=== PATIENT | female | born 1965 | race Two or more races ===

== ENCOUNTER 2020-05-07 07:23 | Outpatient (CLI) | payer OTHER | END 2020-05-07 07:39 | disposition home or self-care (01) | LOC: TOM 07:23 | PROVIDERS: ATTEND Internal Medicine Gastroenterology | DX: K56.50 Intestinal adhesions [bands], unspecified as to partial versus complete obstruction (principal); K56.609 Unspecified intestinal obstruction, unspecified as to partial versus complete obstruction ==